=== PATIENT | male | born 1975 | race American Indian/Alaskan Native ===

== ENCOUNTER 2018-06-04 10:28 | Emergency (ER) | payer BC, MEDICAID ==
[~2018-06-04] VITALS: Ht 170.2 cm; Wt 97.0 kg
[2018-06-04 10:39] VITALS: BP 159/99
[2018-06-04 11:07] LABS: BASOPHILS % (AUTO) 0 % (0-1); EOSINOPHILS % (AUTO) 0 % (0-6); HEMATOCRIT 47.3 % (42.0-52.0); HEMOGLOBIN 16.4 g/dl (14.0-17.9); LYMPHOCYTES # (AUTO) 1.3 X10'3 (1.1-4.8); LYMPHOCYTES % (AUTO) 9.9 % (21-51); MEAN CORPUSCULAR HEMOGLOBIN 29.8 PG (27.0-31.0); MEAN CORPUSCULAR HGB CONC 34.6 % (33.0-36.5); MEAN CORPUSCULAR VOLUME 86.1 FL (78-98); MEAN PLATELET VOLUME 8.3 FL (7.4-10.4); MONOCYTES # (AUTO) 0.3 X10'3 (0-0.9); MONOCYTES % (AUTO) 2.4 % (2-12); NEUTROPHILS # (AUTO) 11.7 X10'3 (1.8-7.7); NEUTROPHILS % (AUTO) 87.7 % (42-75); PLATELET COUNT 282 X10'3 (140-440); RED BLOOD COUNT 5.49 X10'6 (4.70-6.10); RED CELL DISTRIBUTION WIDTH 13.7 % (11.5-14.5); WHITE BLOOD COUNT 13.4 X10'3 (4.5-11.0)
[2018-06-04 11:13] LABS: CLARITY,URINE CLEAR (Clear); COLOR,URINE YELLOW (Yellow); GLUCOSE, URINE NEGATIVE (Neg); KETONES,URINE NEGATIVE (Neg); LEUKOCYTE ESTERASE ,URINE NEGATIVE (Neg); NITRITES, URINE NEGATIVE (Neg); OCCULT BLOOD,URINE TRACE-INTACT (Neg); PROTEIN,URINE NEGATIVE (Neg); UROBILINOGEN,URINE 0.2 E.U/dL (0.2-1.0)
[2018-06-04 11:14] LABS: UA COLLECTION TYPE CLN CATCH MIDSTREAM
[2018-06-04 11:17] LABS: PROTHROMBIN TIME 10.1 SECONDS (9.0-12.0)
[2018-06-04 11:20] LABS: BACTERIA,URINE FEW /HPF (Neg); HYALINE CASTS 0-3 /LPF (NEGATIVE); MUCUS STRANDS FEW /LPF (Neg); RBC,URINE 0-2 /HPF (0-2); SQUAMOUS EPITHELIAL CELL,UR FEW /LPF (FEW); WBC,URINE 0-4 /HPF (0-4)
[2018-06-04 11:23] LABS: ALANINE AMINOTRANSFERASE 40 U/L (12-78); ALBUMIN 4.2 G/DL (3.4-5.0); ALBUMIN/GLOBULIN RATIO 1.1 (1.1-1.5); ALKALINE PHOSPHATASE 88 IU/L (46-116); ANION GAP 10 (8-16); ASPARTATE AMINO TRANSFERASE 19 U/L (10-37); BILIRUBIN,TOTAL 0.8 MG/DL (0.1-1.0); BLOOD UREA NITROGEN 10 MG/DL (7-18); CALCIUM 8.5 MG/DL (8.5-10.1); CHLORIDE 101 MMOL/L (99-107); CREATININE 0.77 MG/DL (0.60-1.10); GLUCOSE 115 MG/DL (70-104); LIPASE 139 U/L (73-393); POTASSIUM 3.2 MMOL/L (3.5-5.1); SODIUM 138 MMOL/L (135-145); TOTAL CARBON DIOXIDE 27.4 MMOL/L (24-32); TOTAL PROTEIN 8.2 G/DL (6.4-8.2); eGFR > 90 ML/MIN
[2018-06-04] MEDS ORDERED: ESOM20CA PO (11:40)
[2018-06-04] MEDS ORDERED: morphine 5 MG/ML injection IV ONE (11:55)
[2018-06-04] MEDS ORDERED: normal saline 1000ML IV soln IVB ONE (11:55)
[2018-06-04] MEDS ORDERED: ondansetron/PF 4mg/2ml inj IV ONE (11:55)
[2018-06-04] MEDS ORDERED: morphine 10mg/ml inj. IV ONE (12:35)
[2018-06-04] MEDS ORDERED: ketorolac trometh. 30mg/ml inj. IV ONE (13:25)
[2018-06-04] MEDS ORDERED: ONDA4TAB6 PO (14:15)
[2018-06-04] MEDS ORDERED: HYDR-565 PO (14:15)
== END 2018-06-04 14:39 | disposition home or self-care (01) ==
LOC: ER 10:28
DX: K80.20 Calculus of gallbladder without cholecystitis without obstruction (principal); K21.9 Gastro-esophageal reflux disease without esophagitis; Z79.899 Other long term (current) drug therapy
CPT/HCPCS: 36415; 76700; 80053; 81001; 83690; 85025; 85610; 96374; 96375; 99285; J1885; J2270; J2405; J7030

== ENCOUNTER 2019-07-07 05:44 | Inpatient (IN) | payer BC, OTHER ==
[2019-07-02 09:35] LABS: CLARITY,URINE CLEAR (Clear); COLOR,URINE YELLOW (Yellow); GLUCOSE, URINE NEGATIVE (Neg); KETONES,URINE NEGATIVE (Neg); LEUKOCYTE ESTERASE ,URINE NEGATIVE (Neg); NITRITES, URINE NEGATIVE (Neg); OCCULT BLOOD,URINE TRACE-INTACT (Neg); PROTEIN,URINE NEGATIVE (Neg)
[2019-07-02 09:36] LABS: UA COLLECTION TYPE NON-SPECIFIED
[2019-07-02 09:40] LABS: SQUAMOUS EPITHELIAL CELL,UR FEW /LPF (FEW)
[2019-07-02 09:41] LABS: BASOPHILS # (AUTO) 0.1 X10'3 (0-0.2); BASOPHILS % (AUTO) 0.7 % (0-1); EOSINOPHILS # (AUTO) 0.4 X10'3 (0-0.9); EOSINOPHILS % (AUTO) 5.2 % (0-6); LYMPHOCYTES # (AUTO) 2.5 X10'3 (1.1-4.8); LYMPHOCYTES % (AUTO) 29.5 % (21-51); MEAN CORPUSCULAR HEMOGLOBIN 29.7 PG (27.0-31.0); MEAN CORPUSCULAR HGB CONC 34.4 g/dL (33.0-36.5); MEAN CORPUSCULAR VOLUME 86.2 FL (78-98); MONOCYTES # (AUTO) 0.6 X10'3 (0-0.9); MONOCYTES % (AUTO) 6.5 % (2-12); NEUTROPHILS % (AUTO) 58.1 % (42-75); PRE OP HEMATOCRIT 47.5 % (42.0-52.0); PRE OP HEMOGLOBIN 16.3 g/dL (14.0-17.9); PRE OP PLATELET COUNT 310 X10'3 (140-440); RED BLOOD COUNT 5.51 X10'6 (4.70-6.10); RED CELL DISTRIBUTION WIDTH 13.5 % (11.5-14.5)
[2019-07-02 09:42] LABS: BACTERIA,URINE FEW /HPF (Neg); RBC,URINE 0-2 /HPF (0-2); WBC,URINE 0-4 /HPF (0-4)
[2019-07-02 09:49] LABS: ALBUMIN 3.9 G/DL (3.4-5.0); ALBUMIN/GLOBULIN RATIO 0.8 (1.1-1.5); ALKALINE PHOSPHATASE 148 IU/L (46-116); CALCIUM 8.8 MG/DL (8.5-10.1); PRE OP ALT 65 U/L (30-65); PRE OP AST 24 U/L (10-37); PRE OP BILIRUB, TOTAL 0.8 MG/DL (0.0-1.0); TOTAL CARBON DIOXIDE 26.9 MMOL/L (24-32); TOTAL PROTEIN 8.6 G/DL (6.4-8.2)
[2019-07-02 09:56] LABS: BLOOD UREA NITROGEN 12 MG/DL (7-18); BUN/CREATININE RATIO 14.8 (5.4-32.0); CHLORIDE 106 MMOL/L (99-107); CREATININE 0.81 MG/DL (0.60-1.10); PRE OP ANION GAP 10 (8-16); PRE OP GLUCOSE 95 MG/DL (70-104); PRE OP SODIUM 143 MMOL/L (135-145); eGFR > 90 ML/MIN
[2019-07-07] VITALS (45 sets, daily range): BP systolic 115–155; BP diastolic 68–108
[~2019-07-07] VITALS: Ht 172.7 cm; Wt 118.2 kg
[~2019-07-07 05:44] MED LIST: ESOM20CA PO; ceFOXitin 2 GM ADDvantage bag 100 ML IV ONE; famotidine 20mg tablet PO ONE
[2019-07-07] MEDS ORDERED: ringers solution, lacted 1,000 ML IV SCH ×2 (06:46→08:35)
[2019-07-07] MEDS ORDERED: hydrALAZINE 20mg/ml inj. IV PRN ×2 (06:50→08:35)
[2019-07-07] MEDS ORDERED: labetalol 20mg/4ml (5mg/ml) syringe IV PRN ×2 (06:50→08:35)
[2019-07-07] MEDS ORDERED: ondansetron/PF 4mg/2ml inj IV PRN ×3 (06:50→14:35)
[2019-07-07] MEDS ORDERED: fentaNYL/PF 50MCG/1 ML 2ML syringe IV PRN ×4 (06:50→08:35)
[2019-07-07] MEDS ORDERED: morphine 4 MG/ML inj SYRINge IV PRN ×3 (06:50→08:35)
[2019-07-07] MEDS: ringers solution, lacted 1,000 ML IV SCH ×2 (07:23→16:52)
[2019-07-07] MEDS ORDERED: BUPIVAcaine/PF 2.5 mg/ml (0.25%) 30ml vial ONE (08:25)
[2019-07-07] MEDS ORDERED: ceFAZolin 1000mg inj ONE (08:25)
[2019-07-07] MEDS ORDERED: dexamethasone sod phosphate 4mg/ml inj. ONE (08:30)
[2019-07-07] MEDS ORDERED: rocuronium 10mg/ml inj IV ONE (08:30)
[2019-07-07] MEDS ORDERED: propofol inj 20 ML IV ONE ×2 (08:30)
[2019-07-07] MEDS ORDERED: LIDOcaine 2% (20mg/ml) 5ml vial ONE (08:30)
[2019-07-07] MEDS ORDERED: midazolam 2 mg/2 ml injection ONE (08:30)
[2019-07-07] MEDS ORDERED: fentaNYL/PF 50MCG/1 ML 2ML syringe ONE (08:30)
[2019-07-07] MEDS ORDERED: glycopyrrolate 0.2mg/ml inj ONE (08:31)
[2019-07-07] MEDS ORDERED: ondansetron/PF 4mg/2ml inj ONE (08:31)
[2019-07-07] MEDS ORDERED: neostigmine methylsulfate 1 MG/ML 10ml vial ONE (09:09)
[2019-07-07] MEDS ORDERED: sevoflurane 250ml liquid IH ONE (09:09)
[2019-07-07] MEDS ORDERED: labetalol 20mg/4ml (5mg/ml) syringe IV ONE (09:09)
[2019-07-07] MEDS ORDERED: bacitracin 15gm ointment TP ONE (10:21)
--- NOTE | 2019-07-07 10:38 | NUR ---
Received from OR via [facility], accompanied by Anesthesiologist DR BARRIOS and report given by Anesthesiologist. PT DROWSY, DENIES PAIN, ABDOMEN W/3 LAP SITES W/BANDAIDS CDI, SHANICE TO BULB SUCTION W/SANGUINOUS DRAINAGE. PT STATES " I FEEL LIKE I INHALED MY SALIVA, AUSCULTATION TO LUNGS, LEFT A/P LUNG W/CONGESTION, RIGHT ANT LUNG CLEAR, POST LUNG W/CONGESTION, INFORMED DR BARRIOS, NO ORDERS WILL CONTINUE TO MONITOR.POSITIONED WITH HOB ELEVATED AND ENCOURAGED COUGHING AND DEEP BREATHING WHILE HERE IN RECOVERY ROOM. Addendum: 07/07/19 at 1124 by Barbara Sen RN Amended: Links added.
[2019-07-07] MEDS: morphine 4 MG/ML inj SYRINge IV PRN ×2 (11:41→14:25)
[2019-07-07] MEDS ORDERED: acetaminophen 325mg tablet PO PRN (14:35)
[2019-07-07] MEDS ORDERED: HYDROcodone/acetaminophen 10/325mg tab PO PRN (14:35)
--- NOTE | 2019-07-07 16:08 | NUR ---
Report called to receiving nurse. Transferred via GURNEY, 1 BAG OF PT Belongings, CELL PHONE SENT W/PT TO ROOM 350A, RECEIVING RN AT BEDSIDE TO RECEIVE PT. Special Issues communicated to receiving nurse.YES. Addendum: 07/07/19 at 1614 by Barbara Sen RN Amended: Links added.
--- NOTE | 2019-07-07 18:31 | NUR ---
Problems reprioritized. Patient report given, questions answered & plan of care reviewed with Pat RN.
--- NOTE | 2019-07-07 19:30 | NUR ---
pt reports he voided a large amt in the recovery room Addendum: 07/08/19 at 0400 by Berenice Springer RN Amended: Links added.
[2019-07-08 04:00] VITALS: BP 105/69
--- NOTE | 2019-07-08 06:55 | NUR ---
Patient in room [facility]. I have received report from SALLIE Kessler and had the opportunity to ask questions and assume patient care.
--- NOTE | 2019-07-08 06:56 | NUR ---
Patient in room [facility]. I have received report from SALLIE Erickson and had the opportunity to ask questions and assume patient care.
[2019-07-08 07:00] VITALS: BP 111/73
[2019-07-08] MEDS ORDERED: pantoprazole 40mg Tablet.DR PO SCH (08:00)
[2019-07-08 11:30] VITALS: BP 131/85
--- NOTE | 2019-07-08 14:18 | NUR ---
Pt discharged to home at 1410 with all belongings, accompanied by family. Discharge instructions and medications reviewed. New prescription called in by Dr Proctor' office. Pt instructed to follow up with Dr Proctor on Friday. Instructions provided with return demonstration to empty SHANICE drain. IV DC'd on NOC shift. Pt escorted to front lobby by student nurse.
== END 2019-07-08 14:10 | disposition home or self-care (01) | DRG 410 ==
LOC: PAS 05:44 → SUR 3N 17:14 → PAS 17:28
PROVIDERS: ADMIT Surgery; ATTEND Surgery
PROC: 0DNL4ZZ Release Transverse Colon, Percutaneous Endoscopic Approach (ICD-10-PCS; 2019-07-07)
PROC: 0H5 Skin and Breast, Destruction (ICD-10-PCS; 2019-07-07)
PROC: 0H5 Skin and Breast, Destruction (ICD-10-PCS; 2019-07-07)
PROC: 0FB44ZZ Excision of Gallbladder, Percutaneous Endoscopic Approach (ICD-10-PCS; 2019-07-07)
PROC: 0FN04ZZ Release Liver, Percutaneous Endoscopic Approach (ICD-10-PCS; 2019-07-07)
PROC: 0FC44ZZ Extirpation of Matter from Gallbladder, Percutaneous Endoscopic Approach (ICD-10-PCS; principal; 2019-07-07 09:09)
DX: K80.12 Calculus of gallbladder with acute and chronic cholecystitis without obstruction (principal); K21.9 Gastro-esophageal reflux disease without esophagitis; E66.9 Obesity, unspecified; L91.8 Other hypertrophic disorders of the skin; K66.0 Peritoneal adhesions (postprocedural) (postinfection); R16.0 Hepatomegaly, not elsewhere classified; Z87.891 Personal history of nicotine dependence; Z68.39 Body mass index [BMI] 39.0-39.9, adult
CPT/HCPCS: Z7506; Z7508; 36415; 80053; 81001; 85025; 93005; A4215; A4618; A6449; A7000; G0378; J0690; J0694; J1100; J2001; J2250; J2270; J2405; J2704; J2710; J3010; J3490; J7120

== ENCOUNTER 2024-08-30 07:19 | Outpatient (CLI) | payer MEDICAID ==
[~2024-08-30 07:19] MED LIST changes: -ceFOXitin 2 GM ADDvantage bag 100 ML IV ONE; -famotidine 20mg tablet PO ONE
== END 2024-08-30 23:59 | disposition home or self-care (01) ==
LOC: MRI02 07:19
PROVIDERS: ATTEND Pediatrics Sports Medicine
DX: S83.241A Other tear of medial meniscus, current injury, right knee, initial encounter (principal); M17.11 Unilateral primary osteoarthritis, right knee; M94.261 Chondromalacia, right knee; M25.461 Effusion, right knee; M25.561 Pain in right knee; X58.XXXA Exposure to other specified factors, initial encounter; Y93.89 Activity, other specified; Y92.89 Other specified places as the place of occurrence of the external cause; Y99.8 Other external cause status
CPT/HCPCS: 73721